=== PATIENT | male | born 1960 | race Hispanic/Latino ===

== ENCOUNTER 2021-09-27 17:26 | Emergency (ER) | payer SELFPAY ==
[~2021-09-27] VITALS: Ht 167.6 cm; Wt 61.2 kg
[2021-09-27] MEDS ORDERED: ASPIRIN 81 MG CHEW TAB PO ONE (18:00)
[2021-09-27 18:20] LABS: BASOPHILS % 0.2 % (0.0-1.0); HEMATOCRIT 36.5 % (38.2-49.6); HEMOGLOBIN 11.8 g/dL (14.0-18.0); LYMPHOCYTES # (AUTO) 0.5 (1.0-3.2); LYMPHOCYTES % 3.7 % (18.0-39.1); MEAN CORPUSCULAR HEMOGLOBIN 28.4 pg (28-32); MEAN CORPUSCULAR HGB CONC 32.3 g/dL (31-35); MONOCYTES # (AUTO) 0.7 (0.2-0.8); NEUTROPHILS # (AUTO) 13.1 (2.1-6.9); NEUTROPHILS % 90.5 % (38.7-80.0); PLATELET COUNT 368 x10e3/uL (140-360); RED BLOOD COUNT 4.15 x10e6/uL (4.3-5.7); RED CELL DISTRIBUTION WIDTH 14.3 % (11.7-14.4)
[2021-09-27 18:36] LABS: ALBUMIN 3.4 g/dL (3.5-5.0); ALBUMIN/GLOBULIN RATIO 0.7 (0.8-2.0); ANION GAP 18.2 mmol/L (8-16); CALCIUM 10.8 mg/dL (8.4-10.2); CREATININE, SERUM 1.11 mg/dL (0.72-1.25); POTASSIUM 4.2 mmol/L (3.5-5.1)
[2021-09-27 18:43] LABS: CREATINE KINASE MB 0.5 ng/mL (0-5.0)
[2021-09-27] MEDS ORDERED: AZITHROMYCIN250 MG PO (19:28)
[2021-09-27] MEDS ORDERED: VENTOLIN HFA18 GM INH (19:28)
[2021-09-27] MEDS ORDERED: PREDNISONE20 MG PO (19:28)
== END 2021-09-27 19:34 | disposition home or self-care (01) ==
LOC: ER 17:31
DX: U07.1 COVID-19 (principal); Z95.1 Presence of aortocoronary bypass graft
CPT/HCPCS: 36415; 71045; 80053; 82550; 82553; 83880; 84484; 85025; 99283; U0002

== ENCOUNTER 2021-10-04 13:15 | Inpatient (IN) | payer OTHER ==
[~2021-10-04] VITALS: Ht 167.6 cm; Wt 52.4 kg
[~2021-10-04 13:15] MED LIST: AZITHROMYCIN250 MG PO; PREDNISONE20 MG PO; VENTOLIN HFA18 GM INH
[2021-10-04 13:58] LABS: BASOPHILS # (AUTO) 0.1 (0.0-0.1); BASOPHILS % 0.3 % (0.0-1.0); EOSINOPHILS # (AUTO) 0.3 (0.0-0.4); EOSINOPHILS % 1.6 % (0.0-6.0); HEMOGLOBIN 12.2 g/dL (14.0-18.0); LYMPHOCYTES # (AUTO) 1.6 (1.0-3.2); LYMPHOCYTES % 8.4 % (18.0-39.1); MEAN CORPUSCULAR HGB CONC 31.3 g/dL (31-35); MEAN CORPUSCULAR VOLUME 89.4 fL (81-99); MONOCYTES # (AUTO) 0.6 (0.2-0.8); MONOCYTES % 3.2 % (4.4-11.3); NEUTROPHILS # (AUTO) 16.4 (2.1-6.9); NEUTROPHILS % 83.9 % (38.7-80.0); PLATELET COUNT 667 x10e3/uL (140-360); RED BLOOD COUNT 4.36 x10e6/uL (4.3-5.7); RED CELL DISTRIBUTION WIDTH 14.4 % (11.7-14.4)
[2021-10-04 14:07] LABS: INR 1.23; PROTHROMBIN TIME 16.5 seconds (11.9-14.5)
[2021-10-04 14:08] LABS: PARTIAL THROMBOPLASTIN TIME 40.7 seconds (23.8-35.5)
[2021-10-04 14:18] LABS: ALBUMIN 2.2 g/dL (3.5-5.0); ALBUMIN/GLOBULIN RATIO 0.4 (0.8-2.0); ANION GAP 13.6 mmol/L (8-16); CALCIUM 9.1 mg/dL (8.4-10.2); CREATININE, SERUM 0.87 mg/dL (0.72-1.25); POTASSIUM 3.6 mmol/L (3.5-5.1)
[2021-10-04 14:27] LABS: CREATINE KINASE MB 0.4 ng/mL (0-5.0)
[2021-10-04] MEDS ORDERED: SODIUM CHLORIDE 0.9% 1000ML 1,000 ML IV SCH (14:45)
[2021-10-04] MEDS: CEFTRIAXONE 1 GM in SODIUM CHLORIDE 0.9% 50ML 50 ML IV SCH (15:05)
[2021-10-04] MEDS: DEXAMETHASONE SOD PHOS 10 MG/1 ML VIAL IV SCH (15:05)
[2021-10-04] MEDS ORDERED: SODIUM CHLORIDE 0.9% 250ML 250 ML ONE (15:09)
[2021-10-04] MEDS ORDERED: SODIUM CHLORIDE FLUSH 10 ML SYR INJ PRN (15:15)
[2021-10-04] MEDS ORDERED: ONDANSETRON HCL INJ 2MG/ML 2ML 2 MG/ML VIAL IV PRN (15:15)
[2021-10-04] MEDS ORDERED: REMDESIVIR 100MG 200 MG in SODIUM CHLORIDE 0.9% 100 ML IV ONE (16:00)
[2021-10-04 19:24] LABS: CLARITY,URINE SL CLOUDY (CLEAR); COLOR,URINE AMBER (YELLOW); KETONES,URINE 1+ (NEGATIVE); LEUKOCYTE ESTERASE ,URINE NEGATIVE (NEGATIVE); NITRITE,URINE NEGATIVE (NEGATIVE); PROTEIN,URINE DIPSTICK 1+ (NEGATIVE); URINE UROBILINOGEN 1 mg/dL (0.2 - 1)
[2021-10-04 19:34] LABS: BACTERIA,URINE FEW /HPF; RBC,URINE 0-5 /HPF (0-5)
[2021-10-04] MEDS: ENOXAPARIN SOD INJ 40 MG/0.4 ML SYR SC SCH (20:44)
[2021-10-04] MEDS ORDERED: ZOLPIDEM TARTRATE 5 MG TAB PO PRN (21:00)
[2021-10-05] VITALS (11 sets, daily range): BP systolic 107–165; BP diastolic 67–98
[2021-10-05] MEDS: GUAIFENESIN/CODEINE 5 ML LIQD PO PRN (01:44)
[2021-10-05 05:54] LABS: BASOPHILS % 0.2 % (0.0-1.0); EOSINOPHILS % 0.3 % (0.0-6.0); HEMATOCRIT 32.6 % (38.2-49.6); HEMOGLOBIN 10.2 g/dL (14.0-18.0); MEAN CORPUSCULAR HEMOGLOBIN 28.3 pg (28-32); MEAN CORPUSCULAR HGB CONC 31.3 g/dL (31-35); MEAN CORPUSCULAR VOLUME 90.3 fL (81-99); MONOCYTES # (AUTO) 0.5 (0.2-0.8); MONOCYTES % 4.1 % (4.4-11.3); NEUTROPHILS # (AUTO) 9.5 (2.1-6.9); NEUTROPHILS % 83.8 % (38.7-80.0); PLATELET COUNT 457 x10e3/uL (140-360); RED BLOOD COUNT 3.61 x10e6/uL (4.3-5.7); RED CELL DISTRIBUTION WIDTH 14.2 % (11.7-14.4)
[2021-10-05 06:08] LABS: CALCIUM 8.6 mg/dL (8.4-10.2); CREATININE, SERUM 0.72 mg/dL (0.72-1.25)
[2021-10-05 06:30] LABS: CREATINE KINASE MB 0.9 ng/mL (0-5.0)
[2021-10-05] MEDS: ENOXAPARIN SOD INJ 40 MG/0.4 ML SYR SC SCH ×2 (08:38→20:43)
[2021-10-05] MEDS: DEXAMETHASONE SOD PHOS 10 MG/1 ML VIAL IV SCH (08:38)
[2021-10-05] MEDS: CEFTRIAXONE 1 GM in SODIUM CHLORIDE 0.9% 50ML 50 ML IV SCH (08:38)
[2021-10-05] MEDS ORDERED: METOPROLOL TART25 MG PO (11:24)
[2021-10-05] MEDS ORDERED: CLOPIDOGREL75 MG PO (11:24)
[2021-10-05] MEDS ORDERED: IRON (11:24)
[2021-10-05] MEDS ORDERED: CRESTOR10 MG PO (11:24)
[2021-10-05] MEDS ORDERED: ASPIRIN81 MG PO (11:24)
[2021-10-05] MEDS ORDERED: FOLIC ACID PO (11:24)
[2021-10-05] MEDS: REMDESIVIR 100MG 100 MG in SODIUM CHLORIDE 0.9% 100 ML IV SCH (15:07)
[2021-10-06] VITALS (7 sets, daily range): BP systolic 92–123; BP diastolic 67–84
[2021-10-06] MEDS: GUAIFENESIN/CODEINE 5 ML LIQD PO PRN (03:02)
[2021-10-06 07:05] LABS: CALCIUM 8.5 mg/dL (8.4-10.2); CREATININE, SERUM 0.65 mg/dL (0.72-1.25)
[2021-10-06] MEDS: ENOXAPARIN SOD INJ 40 MG/0.4 ML SYR SC SCH ×2 (08:27→21:55)
[2021-10-06] MEDS: DEXAMETHASONE SOD PHOS 10 MG/1 ML VIAL IV SCH (08:27)
[2021-10-06] MEDS: CEFTRIAXONE 1 GM in SODIUM CHLORIDE 0.9% 50ML 50 ML IV SCH (08:27)
[2021-10-06] MEDS: REMDESIVIR 100MG 100 MG in SODIUM CHLORIDE 0.9% 100 ML IV SCH (15:21)
[2021-10-06] MEDS: METOPROLOL TARTRATE 25 MG TAB PO SCH (16:37)
[2021-10-07 00:49] VITALS: BP 112/78
[2021-10-07 02:35] VITALS: BP 118/81
[2021-10-07 05:45] VITALS: BP 130/100
[2021-10-07 06:11] LABS: BASOPHILS % 0.2 % (0.0-1.0); EOSINOPHILS % 0.2 % (0.0-6.0); HEMATOCRIT 35.4 % (38.2-49.6); LYMPHOCYTES # (AUTO) 1.2 (1.0-3.2); MEAN CORPUSCULAR HEMOGLOBIN 27.6 pg (28-32); MEAN CORPUSCULAR HGB CONC 31.1 g/dL (31-35); MEAN CORPUSCULAR VOLUME 88.7 fL (81-99); MONOCYTES # (AUTO) 0.5 (0.2-0.8); MONOCYTES % 5.1 % (4.4-11.3); NEUTROPHILS # (AUTO) 7.6 (2.1-6.9); NEUTROPHILS % 79.6 % (38.7-80.0); PLATELET COUNT 428 x10e3/uL (140-360); RED BLOOD COUNT 3.99 x10e6/uL (4.3-5.7); RED CELL DISTRIBUTION WIDTH 13.7 % (11.7-14.4)
[2021-10-07 06:48] LABS: ALBUMIN 1.9 g/dL (3.5-5.0); ALBUMIN/GLOBULIN RATIO 0.4 (0.8-2.0); ANION GAP 7.1 mmol/L (8-16); CALCIUM 8.8 mg/dL (8.4-10.2); CREATININE, SERUM 0.67 mg/dL (0.72-1.25); POTASSIUM 4.1 mmol/L (3.5-5.1)
[2021-10-07] MEDS: METOPROLOL TARTRATE 25 MG TAB PO SCH ×2 (08:37→17:30)
[2021-10-07] MEDS: CEFTRIAXONE 1 GM in SODIUM CHLORIDE 0.9% 50ML 50 ML IV SCH (08:37)
[2021-10-07] MEDS: DEXAMETHASONE SOD PHOS 10 MG/1 ML VIAL IV SCH (08:37)
[2021-10-07] MEDS: CLOPIDOGREL BISULFATE 75 MG TAB PO SCH (08:38)
[2021-10-07] MEDS: ENOXAPARIN SOD INJ 40 MG/0.4 ML SYR SC SCH ×2 (08:38→21:30)
[2021-10-07 09:18] VITALS: BP 125/73
[2021-10-07] MEDS ORDERED: ONDANSETRON HCL 4 MG ORAL DISINTEGRATING TAB PO PRN (13:45)
[2021-10-07] MEDS: REMDESIVIR 100MG 100 MG in SODIUM CHLORIDE 0.9% 100 ML IV SCH (14:38)
[2021-10-07] MEDS ORDERED: AZITHROMYCIN 250 MG TAB PO SCH (16:00)
[2021-10-07 20:00] VITALS: BP 103/69
[2021-10-07 21:19] VITALS: BP 103/69
[2021-10-08] VITALS (7 sets, daily range): BP systolic 95–117; BP diastolic 60–80
[2021-10-08] MEDS: ENOXAPARIN SOD INJ 40 MG/0.4 ML SYR SC SCH ×2 (08:45→20:33)
[2021-10-08] MEDS: CLOPIDOGREL BISULFATE 75 MG TAB PO SCH (08:45)
[2021-10-08] MEDS: DEXAMETHASONE SOD PHOS 10 MG/1 ML VIAL IV SCH (08:45)
[2021-10-08] MEDS: METOPROLOL TARTRATE 25 MG TAB PO SCH ×2 (08:45→16:54)
[2021-10-08] MEDS: REMDESIVIR 100MG 100 MG in SODIUM CHLORIDE 0.9% 100 ML IV SCH (14:14)
[2021-10-09] VITALS (7 sets, daily range): BP systolic 96–109; BP diastolic 68–75
[2021-10-09] MEDS: ENOXAPARIN SOD INJ 40 MG/0.4 ML SYR SC SCH ×2 (08:35→21:00)
[2021-10-09] MEDS: METOPROLOL TARTRATE 25 MG TAB PO SCH ×2 (08:35→16:39)
[2021-10-09] MEDS: DEXAMETHASONE SOD PHOS 10 MG/1 ML VIAL IV SCH (08:35)
[2021-10-09] MEDS: CLOPIDOGREL BISULFATE 75 MG TAB PO SCH (08:35)
[2021-10-09] MEDS: REMDESIVIR 100MG 100 MG in SODIUM CHLORIDE 0.9% 100 ML IV SCH (15:30)
[2021-10-10] VITALS (8 sets, daily range): BP systolic 80–108; BP diastolic 53–77
[2021-10-10] MEDS: CLOPIDOGREL BISULFATE 75 MG TAB PO SCH (09:18)
[2021-10-10] MEDS: DEXAMETHASONE SOD PHOS 10 MG/1 ML VIAL IV SCH (09:18)
[2021-10-10] MEDS: ENOXAPARIN SOD INJ 40 MG/0.4 ML SYR SC SCH ×2 (09:18→22:08)
[2021-10-10] MEDS: METOPROLOL TARTRATE 25 MG TAB PO SCH ×2 (09:19→16:39)
[2021-10-10] MEDS: REMDESIVIR 100MG 100 MG in SODIUM CHLORIDE 0.9% 100 ML IV SCH (14:02)
[2021-10-11] VITALS (9 sets, daily range): BP systolic 92–115; BP diastolic 63–69
[2021-10-11] MEDS: DEXAMETHASONE SOD PHOS 10 MG/1 ML VIAL IV SCH (09:13)
[2021-10-11] MEDS: METOPROLOL TARTRATE 25 MG TAB PO SCH ×2 (09:14→17:00)
[2021-10-11] MEDS: ENOXAPARIN SOD INJ 40 MG/0.4 ML SYR SC SCH ×2 (09:14→21:47)
[2021-10-11] MEDS: CLOPIDOGREL BISULFATE 75 MG TAB PO SCH (09:14)
[2021-10-12] VITALS (9 sets, daily range): BP systolic 85–97; BP diastolic 60–80
[2021-10-12] MEDS: CLOPIDOGREL BISULFATE 75 MG TAB PO SCH (08:10)
[2021-10-12] MEDS: ENOXAPARIN SOD INJ 40 MG/0.4 ML SYR SC SCH ×2 (08:10→20:48)
[2021-10-12] MEDS: METOPROLOL TARTRATE 25 MG TAB PO SCH ×2 (09:00→16:25)
[2021-10-12] MEDS ORDERED: FUROSEMIDE INJ 10 MG/ML 2 ML VIAL IV ONE (11:15)
[2021-10-12] MEDS: DEXAMETHASONE 4 MG TAB PO SCH (16:24)
[2021-10-13] VITALS (8 sets, daily range): BP systolic 87–116; BP diastolic 59–75
[2021-10-13] MEDS: DEXAMETHASONE 4 MG TAB PO SCH (09:25)
[2021-10-13] MEDS: CLOPIDOGREL BISULFATE 75 MG TAB PO SCH (09:26)
[2021-10-13] MEDS: METOPROLOL TARTRATE 25 MG TAB PO SCH ×2 (09:26→16:02)
[2021-10-13] MEDS: ENOXAPARIN SOD INJ 40 MG/0.4 ML SYR SC SCH ×2 (09:26→21:29)
[2021-10-13 12:33] LABS: BASOPHILS # (AUTO) 0.1 (0.0-0.1); BASOPHILS % 0.5 % (0.0-1.0); EOSINOPHILS # (AUTO) 0.1 (0.0-0.4); HEMATOCRIT 46.5 % (38.2-49.6); HEMOGLOBIN 13.8 g/dL (14.0-18.0); LYMPHOCYTES # (AUTO) 1.2 (1.0-3.2); LYMPHOCYTES % 10.4 % (18.0-39.1); MEAN CORPUSCULAR HEMOGLOBIN 28.1 pg (28-32); MEAN CORPUSCULAR HGB CONC 29.7 g/dL (31-35); MEAN CORPUSCULAR VOLUME 94.7 fL (81-99); MONOCYTES # (AUTO) 0.8 (0.2-0.8); MONOCYTES % 7.5 % (4.4-11.3); NEUTROPHILS # (AUTO) 8.8 (2.1-6.9); NEUTROPHILS % 79.5 % (38.7-80.0); PLATELET COUNT 367 x10e3/uL (140-360); RED BLOOD COUNT 4.91 x10e6/uL (4.3-5.7); RED CELL DISTRIBUTION WIDTH 14.6 % (11.7-14.4)
[2021-10-13 13:04] LABS: ALBUMIN 2.5 g/dL (3.5-5.0); ALBUMIN/GLOBULIN RATIO 0.6 (0.8-2.0); ANION GAP 12.9 mmol/L (8-16); CALCIUM 8.8 mg/dL (8.4-10.2); CREATININE, SERUM 0.83 mg/dL (0.72-1.25); POTASSIUM 3.9 mmol/L (3.5-5.1)
[2021-10-14] VITALS (7 sets, daily range): BP systolic 85–109; BP diastolic 59–70
[2021-10-14] MEDS: DEXAMETHASONE 4 MG TAB PO SCH (08:49)
[2021-10-14] MEDS: ENOXAPARIN SOD INJ 40 MG/0.4 ML SYR SC SCH ×2 (08:49→21:54)
[2021-10-14] MEDS: CLOPIDOGREL BISULFATE 75 MG TAB PO SCH (08:49)
[2021-10-14] MEDS: METOPROLOL TARTRATE 25 MG TAB PO SCH ×2 (08:49→17:00)
[2021-10-15] VITALS (9 sets, daily range): BP systolic 88–103; BP diastolic 57–68
[2021-10-15] MEDS: ENOXAPARIN SOD INJ 40 MG/0.4 ML SYR SC SCH ×2 (09:09→21:19)
[2021-10-15] MEDS: CLOPIDOGREL BISULFATE 75 MG TAB PO SCH (09:09)
[2021-10-15] MEDS: METOPROLOL TARTRATE 25 MG TAB PO SCH ×2 (09:09→16:38)
[2021-10-16] VITALS (7 sets, daily range): BP systolic 90–159; BP diastolic 61–81
[2021-10-16 06:44] LABS: BASOPHILS % 0.3 % (0.0-1.0); EOSINOPHILS # (AUTO) 0.2 (0.0-0.4); EOSINOPHILS % 2.7 % (0.0-6.0); HEMATOCRIT 37.8 % (38.2-49.6); HEMOGLOBIN 11.9 g/dL (14.0-18.0); LYMPHOCYTES # (AUTO) 1.2 (1.0-3.2); LYMPHOCYTES % 18.3 % (18.0-39.1); MEAN CORPUSCULAR HEMOGLOBIN 28.1 pg (28-32); MEAN CORPUSCULAR HGB CONC 31.5 g/dL (31-35); MEAN CORPUSCULAR VOLUME 89.4 fL (81-99); MONOCYTES # (AUTO) 0.5 (0.2-0.8); NEUTROPHILS # (AUTO) 4.6 (2.1-6.9); NEUTROPHILS % 69.5 % (38.7-80.0); PLATELET COUNT 240 x10e3/uL (140-360); RED BLOOD COUNT 4.23 x10e6/uL (4.3-5.7); RED CELL DISTRIBUTION WIDTH 14.6 % (11.7-14.4)
[2021-10-16 07:16] LABS: ALBUMIN 2.3 g/dL (3.5-5.0); ALBUMIN/GLOBULIN RATIO 0.7 (0.8-2.0); ANION GAP 8.6 mmol/L (8-16); CALCIUM 8.8 mg/dL (8.4-10.2); CREATININE, SERUM 0.75 mg/dL (0.72-1.25); POTASSIUM 4.6 mmol/L (3.5-5.1)
[2021-10-16] MEDS: ENOXAPARIN SOD INJ 40 MG/0.4 ML SYR SC SCH ×2 (08:35→21:20)
[2021-10-16] MEDS: METOPROLOL TARTRATE 25 MG TAB PO SCH ×2 (08:35→17:00)
[2021-10-16] MEDS: CLOPIDOGREL BISULFATE 75 MG TAB PO SCH (08:35)
[2021-10-17] VITALS (8 sets, daily range): BP systolic 91–159; BP diastolic 60–81
[2021-10-17] MEDS: METOPROLOL TARTRATE 25 MG TAB PO SCH ×2 (09:00→16:29)
[2021-10-17] MEDS: CLOPIDOGREL BISULFATE 75 MG TAB PO SCH (09:13)
[2021-10-17] MEDS: ENOXAPARIN SOD INJ 40 MG/0.4 ML SYR SC SCH (09:13)
== END 2021-10-17 20:53 | disposition home or self-care (01) | DRG 177 ==
LOC: ER 13:41 → ERHOLD 15:30 → ICU 10-05 10:23 → IMCU 10-05 19:10
PROVIDERS: ADMIT Internal Medicine; ATTEND Internal Medicine
PROC: XW033E5 Introduction of Remdesivir Anti-infective into Peripheral Vein, Percutaneous Approach, New Technology Group 5 (ICD-10-PCS; principal; 2021-10-04)
PROC: 8E0ZXY6 Isolation (ICD-10-PCS; 2021-10-04)
DX: U07.1 COVID-19 (principal); J12.82 Pneumonia due to coronavirus disease 2019; J96.01 Acute respiratory failure with hypoxia; J18.9 Pneumonia, unspecified organism; I25.10 Atherosclerotic heart disease of native coronary artery without angina pectoris; I10 Essential (primary) hypertension; D64.9 Anemia, unspecified; Z95.1 Presence of aortocoronary bypass graft; I25.2 Old myocardial infarction; Z87.891 Personal history of nicotine dependence
CPT/HCPCS: 36415; 71045; 80048; 80053; 81001; 82550; 82553; 82948; 83605; 83735; 83880; 84484; 85025; 85379; 85610; 85730; 86141; 87040; 87086; 93005; 94799; 97139; 99285; J0248; J0456; J0696; J1100; J1650; J1940; J7030; J7050; U0002